=== PATIENT | female | born 1945 | race Caucasian/White ===

== ENCOUNTER 2018-10-20 17:37 | Emergency (ER) | payer MEDICARE, OTHER ==
[~2018-10-20] VITALS: Ht 149.9 cm; Wt 54.4 kg
[~2018-10-20 17:37] MED LIST: BUPR150ER PO; ESTR2; PRAV20; Prilosec20 MG; UNITHROID
[2018-10-20] MEDS ORDERED: Ocuflox5 ML LEFTEYE (18:26)
== END 2018-10-20 18:44 | disposition home or self-care (01) ==
LOC: ER 17:37
DX: H10.022 Other mucopurulent conjunctivitis, left eye (principal)
CPT/HCPCS: 99282

== ENCOUNTER 2019-05-09 06:35 | Inpatient (IN) | payer MEDICARE, OTHER ==
[~2019-05-09] VITALS: Ht 149.9 cm; Wt 55.2 kg
[~2019-05-09 06:35] MED LIST changes: -ESTR2; +ESTR2 PO; +OMEPRAZOLE20 MG PO; +Ocuflox5 ML LEFTEYE; -PRAV20; +PRAV20 PO; -Prilosec20 MG; -UNITHROID; +UNITHROID PO
[2019-05-09 08:02] LABS: BASOPHILS ABSOLUTE AUTO 0.01 K/mm3 (0.00-0.23); BASOPHILS PERCENT AUTO 0 % (0-2); EOSINOPHILS ABSOLUTE AUTO 0.03 K/mm3 (0.00-0.68); EOSINOPHILS PERCENT AUTO 0 % (0-6); Hematocrit 38.9 % (33.0-51.0); Hemoglobin 12.1 g/dL (11.5-16.0); IMMATURE GRAN ABSOLUTE AUTO 0.05 K/mm3 (0.00-0.10); IMMATURE GRAN PERCENT AUTO 1 % (0-1); LYMPHOCYTES ABSOLUTE AUTO 1.37 K/mm3 (0.84-5.20); LYMPHOCYTES PERCENT AUTO 13 % (21-46); MONOCYTES ABSOLUTE AUTO 0.97 K/mm3 (0.16-1.47); MONOCYTES PERCENT AUTO 9 % (4-13); Mean Corpuscular HGB Conc 31.1 g/dL (31.5-36.5); Mean Corpuscular Volume 61 fL (80-100); Mean Platelet Volume 9.7 fL (9.1-12.4); NEUTROPHILS ABSOLUTE AUTO 8.53 K/mm3 (1.96-9.15); NEUTROPHILS PERCENT AUTO 78 % (41-73); Platelet Count 347 K/mm3 (150-400); RDW Coefficient Variation 17.2 % (11.7-14.2); RDW Standard Deviation 32.9 fL (35.1-46.3); Red Blood Cell Count 6.38 M/mm3 (3.80-5.20); White Blood Cell Count 10.96 K/mm3 (4.00-11.30)
[2019-05-09 08:19] LABS: Alanine Aminotransfer (ALT/SGP 19 U/L (12-78); Albumin, Blood 3.2 g/dL (3.4-5.0); Albumin/Globulin Ratio 0.8 (0.8-1.8); Alk Phos 77 U/L (50-136); Anion Gap 11 mmol/L (6-16); Aspartate Aminotrans (AST/SGOT 13 U/L (12-37); Bilirubin, Total 1.2 mg/dL (0.1-1.0); Blood Urea Nitrogen 17 mg/dL (8-24); Bun/Creatinine Ratio 20.4 (12.0-20.0); CO2, Blood 19 mmol/L (21-32); Calcium, Blood 8.8 mg/dL (8.5-10.1); Chloride, Blood 106 mmol/L (98-108); Creatinine, Blood 0.83 mg/dL (0.40-1.00); Glomerular Filtration Rate >60 (60-); Glucose, Blood 75 mg/dL (70-99); Potassium, Blood 3.8 mmol/L (3.5-5.5); Sodium, Blood 136 mmol/L (136-145); Total Protein, Blood 7.2 g/dL (6.4-8.2)
[2019-05-09 11:12] LABS: Base Excess Venous -4.2 mmol/L; PCO2 Venous 40.7 mmHg (38-42); PO2 Venous 88.5 mmHg (38-42); pH Blood Venous 7.34 (7.34-7.37)
[2019-05-09 11:13] LABS: Bicarbonate Venous 21.1 mmol/L (24.0-30.0)
--- NOTE | 2019-05-09 13:09 | NUR ---
new er admit to rm 344 approx 1200. DX DIVERTICULITIS. PT IS A/O X4, AMBULATE IND FROM GURNEY TO BED. SHE STATE ABD PAIN/TENDERNESS THAT IS INTERMITTANT, SHARP, INCREASES W PALPATION OR MOVEMENT. DECLINES PRN, STATE TOLERABLE @ REST. STATE POOR APPETITE, NOT EATING X MULT DAYS. STATE NO BM X MULT DAYS. STATE WEAKNESS/FATIGUE. STATE STOMACH FEELS MILDLY DISTENDED. IV NS @ 125 ML/HR INFUSING CONCURRENTLY W K-RIDER. IV ANTIBX HAVE BEEN ORDERED. FULL LIQUID DIET PROVIDED. SHE STATE NO NAUSEA @ THIS TIME.
[2019-05-09 15:59] LABS: Source, Urine Clean Catch
[2019-05-09 16:07] LABS: Bilirubin, Urine Neg (Neg); Blood, Urine 1+ (Neg); Glucose Qualitative, Urine Neg (Neg); Ketones, Urine 3+ (Neg); Leukocyte Esterase, Urine Neg (Neg); Nitrite, Urine Neg (Neg); Protein, Urine Neg (Neg); Urobilinogen, Urine NORM (Normal)
[2019-05-09 16:09] LABS: Appearance, Urine Clear (Clear); Color, Urine Yellow (P-Yellow)
[2019-05-09 16:19] LABS: Bacteria Many /hpf; Red Blood Cells, Urine 0-2 /hpf (0-2); Squamous Epithelial Cells Few /hpf (Few); White Blood Cells, Urine 0-2 /hpf (0-5)
--- NOTE | 2019-05-10 02:44 | NUR ---
TRANSFER: REPORT GIVEN TO FLOOR RN, PATIENT IS TRANDFERED OUT OF UNIT.
[2019-05-10 05:17] LABS: BASOPHILS ABSOLUTE AUTO 0.02 K/mm3 (0.00-0.23); BASOPHILS PERCENT AUTO 0 % (0-2); EOSINOPHILS ABSOLUTE AUTO 0.04 K/mm3 (0.00-0.68); EOSINOPHILS PERCENT AUTO 0 % (0-6); Hematocrit 36.6 % (33.0-51.0); IMMATURE GRAN ABSOLUTE AUTO 0.03 K/mm3 (0.00-0.10); IMMATURE GRAN PERCENT AUTO 0 % (0-1); LYMPHOCYTES ABSOLUTE AUTO 1.43 K/mm3 (0.84-5.20); LYMPHOCYTES PERCENT AUTO 12 % (21-46); MONOCYTES ABSOLUTE AUTO 1.19 K/mm3 (0.16-1.47); MONOCYTES PERCENT AUTO 10 % (4-13); Mean Corpuscular HGB 18.7 pg (26.0-34.0); Mean Corpuscular HGB Conc 30.1 g/dL (31.5-36.5); Mean Corpuscular Volume 62 fL (80-100); Mean Platelet Volume 9.9 fL (9.1-12.4); NEUTROPHILS ABSOLUTE AUTO 8.88 K/mm3 (1.96-9.15); NEUTROPHILS PERCENT AUTO 77 % (41-73); Platelet Count 315 K/mm3 (150-400); RDW Coefficient Variation 16.4 % (11.7-14.2); RDW Standard Deviation 34.1 fL (35.1-46.3); Red Blood Cell Count 5.88 M/mm3 (3.80-5.20); White Blood Cell Count 11.59 K/mm3 (4.00-11.30)
[2019-05-10 05:42] LABS: Alanine Aminotransfer (ALT/SGP 17 U/L (12-78); Albumin, Blood 2.8 g/dL (3.4-5.0); Albumin/Globulin Ratio 0.8 (0.8-1.8); Alk Phos 67 U/L (50-136); Anion Gap 6 mmol/L (6-16); Aspartate Aminotrans (AST/SGOT 12 U/L (12-37); Bilirubin, Total 0.7 mg/dL (0.1-1.0); Blood Urea Nitrogen 10 mg/dL (8-24); Bun/Creatinine Ratio 13.1 (12.0-20.0); CO2, Blood 25 mmol/L (21-32); Calcium, Blood 8.1 mg/dL (8.5-10.1); Chloride, Blood 109 mmol/L (98-108); Creatinine, Blood 0.77 mg/dL (0.40-1.00); Globulin, Blood 3.7 g/dL (2.2-4.0); Glomerular Filtration Rate >60 (60-); Glucose, Blood 92 mg/dL (70-99); Potassium, Blood 3.9 mmol/L (3.5-5.5); Sodium, Blood 140 mmol/L (136-145); Total Protein, Blood 6.5 g/dL (6.4-8.2)
--- NOTE | 2019-05-10 07:27 | NUR ---
PT T/F TO ROOM 354. THIS RN PERFORMED ASSESSMENT AND AGREE WITH PREVIOUS RN'S FINDINGS EXCEPT FOR: PT C/O ABD PAIN IN R AND LLQ. STATES PAIN WORSE WITH BM'S AND URINATION. DENIES N/V. REFUSED PRN ANALGESICS AND OFFERS FOR HOT PACK. DID NOT SLEEP DURING THE NIGHT, STATES BED IS UNCOMFORTABLE. A/OX3 WITH SOME NOTED FORGETFULLNESS.
--- NOTE | 2019-05-10 17:31 | NUR ---
SHIFT SUMMARY THE PATIENT HAD AN UNEVENTFUL SHIFT. NO COMPLAINTS OF PAIN. CONTINUES ON IV ABX WITHOUT S/SX OF ADVERSE REACTIONS NOTED OR REPORTED. VITALS HAVE BEEN STABLE. PATIENT LIKELY TO BE DISCHARGED HOME TOMORROW.
--- NOTE | 2019-05-11 04:01 | NUR ---
SHIFT SUMMARY PT HAD NO ISSUES NOTED. PT HAS SLEPT WELL T/O SHIFT. PT CURRENTLY SLEEPING IN NO DISTRESS. CALL LIGHT IN REACH.
[2019-05-11 04:57] LABS: Hematocrit 35.2 % (33.0-51.0); Hemoglobin 10.9 g/dL (11.5-16.0); Mean Corpuscular HGB 18.9 pg (26.0-34.0); Mean Corpuscular Volume 61 fL (80-100); Mean Platelet Volume 9.6 fL (9.1-12.4); Platelet Count 330 K/mm3 (150-400); RDW Coefficient Variation 15.6 % (11.7-14.2); Red Blood Cell Count 5.77 M/mm3 (3.80-5.20); White Blood Cell Count 10.81 K/mm3 (4.00-11.30)
[2019-05-11 05:20] LABS: Albumin, Blood 2.7 g/dL (3.4-5.0); Anion Gap 7 mmol/L (6-16); Blood Urea Nitrogen 8 mg/dL (8-24); Bun/Creatinine Ratio 10.9 (12.0-20.0); CO2, Blood 24 mmol/L (21-32); Calcium, Blood 8.3 mg/dL (8.5-10.1); Chloride, Blood 107 mmol/L (98-108); Creatinine, Blood 0.74 mg/dL (0.40-1.00); Glomerular Filtration Rate >60 (60-); Glucose, Blood 99 mg/dL (70-99); Phosphorus, Blood 2.9 mg/dL (2.5-4.9); Sodium, Blood 138 mmol/L (136-145)
[2019-05-11] MEDS ORDERED: Vsl#3 Capsule1 EACH PO (13:21)
[2019-05-11] MEDS ORDERED: DOCU100 PO (13:21)
[2019-05-11] MEDS ORDERED: MIRALAX17 GM PO (13:22)
[2019-05-11] MEDS ORDERED: ONDA4ODT MM (13:23)
[2019-05-11] MEDS ORDERED: CIPR500 PO (13:23)
[2019-05-11] MEDS ORDERED: METR500 PO (13:24)
--- NOTE | 2019-05-11 13:48 | NUR ---
DISCHARGE INSTRUCTIONS DISCUSSED WITH PATIENT. ALL QUESTIONS ANSWERED. PIV REMOVED. PATIENT IN ROOM GETTING READY TO DISCHARGE HOME WITH .
--- NOTE | 2019-05-11 14:08 | NUR ---
PATIENT DISCHARGED HOME AT 1400. SILK SCREEN PRINTER HELPER PUSHED INO OUT IN A WHEELCHAIR TO HER CAR. PATIENT HOME WITH .
== END 2019-05-11 13:59 | disposition home or self-care (01) | DRG 392 ==
LOC: ER 06:35 → MEDS 06:36
PROVIDERS: Emergency Medicine; Nurse Practitioner Acute Care; ADMIT Internal Medicine
DX: K57.32 Diverticulitis of large intestine without perforation or abscess without bleeding (principal); E03.9 Hypothyroidism, unspecified; F32.9 Major depressive disorder, single episode, unspecified; K21.9 Gastro-esophageal reflux disease without esophagitis; E78.5 Hyperlipidemia, unspecified; E86.0 Dehydration
CPT/HCPCS: 36415; 74177; 80053; 80069; 81001; 82803; 83690; 83735; 85025; 85027; 87086; 96361; 96365-59; 96366; 96367; 99285-25; G0378; J0744; J2405; J3480; J7030; Q9967

== ENCOUNTER → 2025-02-24 | Outpatient (CLI) | payer OTHER ==
[~2025-02-24] MED LIST changes: +CIPR500 PO; +DOCU100 PO; +METR500 PO; +MIRALAX17 GM PO; +ONDA4ODT MM; +Vsl#3 Capsule1 EACH PO
[2025-02-24 16:00] LABS: Thyroid Stimulating Hormone 4.18 uIU/mL (0.360-4.800)
== END ==
LOC: LAB 11:42 → LAB SHORT 11:42
PROVIDERS: Student in an Organized Health Care Education/Training Program
DX: E03.8 Other specified hypothyroidism (principal)
CPT/HCPCS: 84439; 84443